=== PATIENT | female | born 1980 | race Caucasian/White ===

== ENCOUNTER 2016-10-27 19:13 | Emergency (ER) | payer OTHER | END 2016-10-27 20:02 | disposition home or self-care (01) | DX: S93.411A Sprain of calcaneofibular ligament of right ankle, initial encounter (principal); S93.601A Unspecified sprain of right foot, initial encounter; X50.1XXA Overexertion from prolonged static or awkward postures, initial encounter; Y93.01 Activity, walking, marching and hiking; Y92.009 Unspecified place in unspecified non-institutional (private) residence as the place of occurrence of the external cause; Y99.8 Other external cause status; R03.0 Elevated blood-pressure reading, without diagnosis of hypertension ==

== ENCOUNTER 2017-01-09 20:53 | Emergency (ER) | payer OTHER ==
[2017-01-09 21:40] LABS: HCG UR QUAL NEGATIVE
[2017-01-09 21:46] LABS: BILIRUBIN,URINE NEGATIVE (NEGATIVE); PH,URINE 5.5 PH (5.0-7.5); UA CHARGE (STRIP ONLY) YES; UR CULTURE IF IND NOT INDICATED
[2017-01-09] MEDS ORDERED: KETOROLAC 60 MG/2 ML VIAL ONE (21:54)
[2017-01-09] MEDS ORDERED: CYCLOBENZAPRINE 10 MG TABLET PO ONE (21:54)
--- NOTE | 2017-01-09 21:58 | ED Physician Documentation ---
PD HPI BACK PAIN - Stated complaint Stated Complaint: LOWER BACK PX - Chief complaint Chief Complaint: Back Pain - History obtained from History obtained from: Patient - History of Present Illness Timing - onset: Today Timing - details: Gradual onset, Still present Location: Lower, Left Quality: Spasm, Aching Associated symptoms: No: Fever, Weakness, Numbness, Incontinent of urine, Unable to urinate Worsened by: Movement, Palpation Similar symptoms before: Has not had sx before Recently seen: Not recently seen - Additional information Additional information: Patient is a 36 year old female with no significant past medical history who is presenting to the emergency department for left sided back pain. patient states that today she was breaking down an old brick fire pit, and then proceeded to move the bricks to a refuse pile. Patient states that after that she was mowing the grass when she developed left sided back pain and it eventually radiated down her left leg. Patient took 8 motrin pills with little relief. Patient denies any trauma Review of Systems Constitutional: denies: Fever, Chills Eyes: denies: Loss of vision, Decreased vision Nose: denies: Rhinorrhea / runny nose, Congestion Cardiac: denies: Chest pain / pressure Respiratory: denies: Cough GI: denies: Abdominal Pain, Nausea, Vomiting : denies: Dysuria, Unable to Void, Incontinent Skin: denies: Rash, Lesions Musculoskeletal: reports: Back pain Neurologic: denies: Generalized weakness, Focal weakness, Numbness Immunocompromised: denies: Immunocompromised PD PAST MEDICAL HISTORY - Past Medical History Psych: Anxiety - Past Surgical History 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, 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 - Present Medications Home Medications: Ambulatory Orders Medication Instructions Recorded Confirmed Sertraline HCl [Zoloft] 150 mg PO DAILY 10/01/14 01/09/17 Cyclobenzaprine [Flexeril] 10 mg PO TID PRN #10 tablet 01/09/17 - Allergies Allergies/Adverse Reactions: Allergies Allergy/AdvReac Type Severity Reaction Status Date / Time No Known Drug Allergies Allergy Verified 01/09/17 21:02 - Social History Does the pt smoke?: No Smoking Status: Never smoker Does the pt drink ETOH?: No Does the pt have substance abuse?: No - Immunizations Immunizations are current?: Yes - POLST Patient has POLST: No PD ED PE NORMAL - Vitals Vital signs reviewed: Yes - General General: Alert and oriented X 3, Well developed/nourished - HEENT HEENT: Atraumatic, PERRL - Neck Neck: Supple, no meningeal sign, No bony TTP - Cardiac Cardiac: RRR, No murmur - Respiratory Respiratory: No respiratory distress, Clear bilaterally - Abdomen Abdomen: Soft, Non tender, Non distended - Derm Derm: Normal color, Warm and dry, No rash - Extremities Extremities: No deformity, No tenderness to palpate, No edema - Neuro Neuro: Alert and oriented X 3, No motor deficit, No sensory deficit - Psych Psych: Normal mood, Normal affect PD ED PE EXPANDED - General General: Alert, In Pain - Back Back: Soft tissue tenderness (tenderness to palpation and hypertonicity of left paraspinal muscles in lower thoracic, upper lumbar region) Results - Vitals Vitals: Vital Signs - 24 hr 01/09/17 01/09/17 21:03 22:04 Temperature 36.7 C Heart Rate 94 90 Respiratory 18 14 Rate Blood Pressure 139/79 H 137/74 H O2 Saturation 98 100 Oxygen O2 Source Room air - Labs Labs: Laboratory Tests 01/09/17 01/09/17 21:25 21:25 Urine Color YELLOW Urine Clarity CLEAR Urine pH 5.5 Ur Specific [place] 1.010 1.010 Urine Protein NEGATIVE Urine Glucose (UA) NEGATIVE Urine Ketones NEGATIVE Urine Occult Blood NEGATIVE Urine Nitrite NEGATIVE Urine Bilirubin NEGATIVE Urine Urobilinogen 0.2 (NORMAL) Ur Leukocyte Esterase NEGATIVE Ur Microscopic Review NOT INDICATED Urine Culture Comments NOT INDICATED Urine HCG, Qual NEGATIVE PD MEDICAL DECISION MAKING - ED course Complexity details: reviewed old records, re-evaluated patient, considered differential, d/w patient ED course: Patient was seen and examined at bedside. Urine was collected and sent. When the urinalysis results returned patient was treated with a tylenol, 1gm and given a flexeril to go home with. Patient's pain was non traumatic and x-ray was not indicated at this time. patient had no neurological deficits. Patient required no further inpatient work up and was stable for discharge with outpatient follow up. Departure - Departure Disposition: 01 Home, Self Care Clinical Impression: Muscle spasm of back Condition: Good Instructions: ED Spasm Back No Trauma Follow-Up: primary,care provider [Other] - Within 3 Days (re-evaluate for back pain ) Prescriptions: Cyclobenzaprine [Flexeril] 10 mg PO TID PRN #10 tablet PRN Reason: Spasms Comments: Your symptoms today are likely being caused by a muscle spasm. You should take ibuprofen (600mg) or tylenol (1000mg) as needed for pain. You can take flexeril for spasm but you cannot take it with other sedatives including alcohol and you cannot drive, or work while taking it. You should apply ice packs or heat packs as needed. You should try to stay up and active as much as possible, and perform stretching exercises. You should follow up with your pmd if your symptoms persist. You may return to the emergency department at any time for new, worsening or uncontrollable symptoms. Forms: Activity restrictions Discharge Date/Time: 01/09/17 22:16
[2017-01-09] MEDS: CYCLOBENZAPRINE 10 MG TABLET PO STA (22:00)
[2017-01-09] MEDS ORDERED: ACETAMINOPHEN 500 MG TABLET PO ONE (22:01)
[2017-01-09] MEDS: ACETAMINOPHEN 500 MG TABLET PO STA (22:02)
[2017-01-09 22:06] VITALS: BP 137/74
[2017-01-09] MEDS: KETOROLAC 60 MG/2 ML VIAL IM STA (22:14)
== END 2017-01-09 22:16 | disposition home or self-care (01) ==
LOC: ED 20:53
DX: M62.830 Muscle spasm of back (principal)
CPT/HCPCS: 81001; 81003; 81025; 87086; 99283

== ENCOUNTER 2017-03-02 18:29 | Emergency (ER) | payer OTHER ==
[2017-03-02 18:51] LABS: BILIRUBIN,URINE NEGATIVE (NEGATIVE); UA w/ MICROSCOPIC CHARGE YES
[2017-03-02 18:53] LABS: HCG UR QUAL NEGATIVE
[2017-03-02 19:00] LABS: UR CULTURE IF IND NOT INDICATED; WBC,URINE 0-3 /HPF (0-5)
[2017-03-02] MEDS ORDERED: LORazepam 2 MG/ML SYRINGE IVP STA (19:03)
[2017-03-02] MEDS ORDERED: ONDANSETRON 4 MG/2 ML VIAL IVP STA (19:03)
--- NOTE | 2017-03-02 19:12 | ED Physician Documentation ---
History of Present Illness - Stated complaint Stated Complaint: ABD PX - Chief complaint Chief Complaint: Abd Pain - History obtained from History obtained from: Patient - Additonal information Additional information: Patient is a 36-year-old female with a history of anxiety and depression. She was on sertraline but ran out of this medication about 6 days ago. Recently she has not been sleepy. She feels shaky, irritated and her skin is been crawling. She has a burning sensation all over her body and earlier today had pressure in her abdomen with an episode of nausea and vomiting. She denies a fever chills. There is no chest pain pressure or dyspnea. She has not had any diarrhea or lower urinary symptoms. She does not want to hurt herself or anybody else. She recently changed insurance and ran out of her medications. She has been on this medication for a long time at 100 mg twice a day and it has helped her significantly. Other than this problem she really has no other medical issues or surgical problems. Review of systems: For pertinent positive and negatives in the review of systems please see history of present illness. Otherwise all other systems have been reviewed and are negative. Dragon disclaimer: Parts of this medical record were created using voice recognition technology. Because of the inherent limitations of this system occasional same sounding word substitutions do occur and persist despite proofreading. Please read the document for context. Review of Systems Ten Systems: 10 systems reviewed and negative Constitutional: denies: Fever, Chills, Myalgias Eyes: denies: Loss of vision Ears: denies: Loss of hearing Nose: denies: Congestion Throat: denies: Dental pain / toothache Cardiac: denies: Chest pain / pressure, Pedal edema, Calf pain Respiratory: denies: Dyspnea, Cough GI: reports: Nausea, Vomiting. 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 - Present Medications Home Medications: Ambulatory Orders Medication Instructions Recorded Confirmed Sertraline HCl [Zoloft] 150 mg PO DAILY 10/01/14 03/02/17 Lorazepam [Ativan] 1 mg PO BID PRN #6 tablet 03/02/17 Sertraline [Zoloft] 100 mg PO BID #30 tablet 03/02/17 - Allergies Allergies/Adverse Reactions: Allergies Allergy/AdvReac Type Severity Reaction Status Date / Time No Known Drug Allergies Allergy Verified 01/09/17 21:02 - Social History Does the pt smoke?: No Smoking Status: Never smoker Does the pt drink ETOH?: No Does the pt have substance abuse?: No - Immunizations Immunizations are current?: Yes - POLST Patient has POLST: No PD ED PE NORMAL - General General: Other (Tearful, anxious, slightly heavy young woman in no apparent distress) - HEENT HEENT: Atraumatic, PERRL, EOMI, Pharynx benign - Neck Neck: No JVD, No bruit - Cardiac Cardiac: RRR, No murmur, No gallop, No rub - Respiratory Respiratory: No respiratory distress, Clear bilaterally - Abdomen Abdomen: Normal bowel sounds, Non tender, Non distended - Back Back: No CVA TTP - Derm Derm: Normal color, Warm and dry, No rash, Other - Extremities Extremities: No deformity, No tenderness to palpate - Neuro Neuro: Alert and oriented X 3, No motor deficit, No sensory deficit - Psych Psych: Other (Anxious and tearful appearing., Thought processes linear, speech is not pressured, no delusions or hallucinations) Results - Vitals Vitals: Vital Signs - 24 hr 03/02/17 03/02/17 18:31 20:21 Temperature 36.1 C L Heart Rate 78 67 Respiratory 18 18 Rate Blood Pressure 145/100 H 131/63 H O2 Saturation 98 99 Oxygen O2 Source Room air - Labs Labs: Laboratory Tests 03/02/17 03/02/17 03/02/17 18:40 19:32 19:32 WBC 4.6 L RBC 4.78 Hgb 13.7 Hct 40.7 MCV 85.0 MCH 28.6 MCHC 33.6 RDW 13.3 Plt Count 204 MPV 7.3 L Neut # 2.5 Lymph # 1.6 [place] # 0.5 Eos # 0.1 Baso # 0.0 Absolute Nucleated RBC 0.00 Nucleated RBCs 0.1 Sodium 137 Potassium 3.6 Chloride 101 Carbon Dioxide 28 Anion Gap 8.0 BUN 23 H Creatinine 0.9 Estimated GFR (MDRD) 72 L Glucose 97 Calcium 9.0 Total Bilirubin 0.5 AST 21 ALT 28 Alkaline Phosphatase 69 Total Protein 7.0 Albumin 4.5 Globulin 2.5 Albumin/Globulin Ratio 1.8 Lipase 24 Urine Color YELLOW Urine Clarity CLOUDY Urine pH 6.0 Ur Specific [place] >=1.030 H Urine Protein NEGATIVE Urine Glucose (UA) NEGATIVE Urine Ketones NEGATIVE Urine Occult Blood NEGATIVE Urine Nitrite NEGATIVE Urine Bilirubin NEGATIVE Urine Urobilinogen 0.2 (NORMAL) Ur Leukocyte Esterase NEGATIVE Urine RBC 0-5 Urine WBC 0-3 Ur Squamous Epith Cells MANY Squamous H Urine Crystals 6-10 Calcium Oxalate Urine Bacteria Few Urine Starch PRESENT Ur Microscopic Review INDICATED Urine Culture Comments NOT INDICATED Urine HCG, Qual NEGATIVE Acetaminophen 03/02/17 03/02/17 19:32 19:49 WBC RBC Hgb Hct MCV MCH MCHC RDW Plt Count MPV Neut # Lymph # [place] # Eos # Baso # Absolute Nucleated RBC Nucleated RBCs Sodium Potassium Chloride Carbon Dioxide Anion Gap BUN Creatinine Estimated GFR (MDRD) Glucose Calcium Total Bilirubin AST ALT Alkaline Phosphatase Total Protein Albumin Globulin Albumin/Globulin Ratio Lipase Urine Color YELLOW Urine Clarity CLEAR Urine pH 6.0 Ur Specific [place] 1.025 Urine Protein NEGATIVE Urine Glucose (UA) NEGATIVE Urine Ketones NEGATIVE Urine Occult Blood NEGATIVE Urine Nitrite NEGATIVE Urine Bilirubin NEGATIVE Urine Urobilinogen 0.2 (NORMAL) Ur Leukocyte Esterase NEGATIVE Urine RBC Urine WBC Ur Squamous Epith Cells Urine Crystals Urine Bacteria Urine Starch Ur Microscopic Review NOT INDICATED Urine Culture Comments NOT INDICATED Urine HCG, Qual Acetaminophen < 10 L PD MEDICAL DECISION MAKING - ED course Complexity details: reviewed results, re-evaluated patient, considered differential, d/w patient ED course: Patient is a pleasant but very anxious young female who presents with signs and symptoms consistent with an anxiety and panic attack. There may also be a component of SSRI withdrawal.She was on Zoloft but discontinued this medication about 6 days ago and consequently has felt very stressed and panicky. Her constellation of symptoms did not seem to make sense from medical standpoint however we were careful and check things early. An EKG was done his EKG demonstrates normal sinus rhythm at 77 bpm the LA QRS and QT intervals are normal there is no ST elevation depression or T-wave inversion. Blood work on this patient including urinalysis is normal. She is given a very small dose of Ativan here and started back on her Zoloft. The patient is attempting to get into see a new doctor I will write her for a bridge prescription for her Zoloft. Disposition: To home Clinical impression: 1. Acute panic attack 2. Suspect mild SSRI withdrawal symptoms Departure - Departure Disposition: Home, Self Care Clinical Impression: Stress and adjustment reaction Condition: Good Instructions: ED Stress React Prescriptions: Lorazepam [Ativan] 1 mg PO BID PRN #6 tablet PRN Reason: Anxiety Sertraline [Zoloft] 100 mg PO BID #30 tablet
[2017-03-02] MEDS ORDERED: SERTRALINE 50 MG TABLET ONE (19:20)
[2017-03-02] MEDS ORDERED: ONDANSETRON 4 MG/2 ML VIAL ONE (19:37)
[2017-03-02 19:42] LABS: BASOPHILS % (AUTO) 0.4 %; EOSINOPHILS # (AUTO) 0.1 10^3/uL (0.0-0.7); EOSINOPHILS % (AUTO) 1.8 %; HCT - HEMATOCRIT 40.7 % (37.0-47.0); HGB - HEMOGLOBIN 13.7 g/dL (12.0-16.0); LYMPHOCYTES # (AUTO) 1.6 10^3/uL (1.5-3.5); LYMPHOCYTES % (AUTO) 34.7 %; MEAN CORPUSCULAR HEMOGLOBIN 28.6 pg (27.0-31.0); MEAN CORPUSCULAR HGB CONC 33.6 g/dL (32.0-36.0); MEAN PLATELET VOLUME 7.3 fL (7.9-10.8); MONOCYTES # (AUTO) 0.5 10^3/uL (0.0-1.0); MONOCYTES % (AUTO) 9.9 %; NEUTROPHILS # (AUTO) 2.5 10^3/uL (1.5-6.6); NEUTROPHILS % (AUTO) 53.2 %; NUCLEATED RED BLOOD CELLS AUTO 0.1 /100WBC; RED BLOOD COUNT 4.78 10^6/uL (4.20-5.40); RED CELL DISTRIBUTION WIDTH 13.3 % (12.0-15.0); UNCORRECTED WHITE BLOOD COUNT 4.6 x10^3/uL; WHITE BLOOD COUNT 4.6 x10^3/uL (4.8-10.8)
[2017-03-02 19:55] LABS: ALBUMIN/GLOBULIN RATIO 1.8 (1.0-2.2); BILIRUBIN,TOTAL 0.5 mg/dL (0.2-1.0); CREATININE 0.9 mg/dL (0.4-1.0); POTASSIUM 3.6 mmol/L (3.5-5.0)
[2017-03-02 19:58] LABS: BILIRUBIN,URINE NEGATIVE (NEGATIVE)
[2017-03-02 19:59] LABS: UA CHARGE (STRIP ONLY) YES; UR CULTURE IF IND NOT INDICATED
[2017-03-02] MEDS ORDERED: ACETAMINOPHEN 325 MG TABLET PO ONE (20:31)
[2017-03-02] MEDS ORDERED: ACETAMINOPHEN 325 MG TABLET PO STA (20:35)
[2017-03-02 22:12] VITALS: BP 147/89
[2017-03-03] MEDS ORDERED: SERTRALINE 50 MG TABLET PO SCH (09:00)
== END 2017-03-02 22:09 | disposition home or self-care (01) ==
LOC: ED 18:29
DX: F41.0 Panic disorder [episodic paroxysmal anxiety] (principal); F43.20 Adjustment disorder, unspecified
CPT/HCPCS: 36415; 80053; 80307; 81001; 81003; 81025; 83690; 85025; 93005; 96374; 99283; 99284; A9270; 87086

== ENCOUNTER 2017-06-10 15:03 | Emergency (ER) | payer OTHER ==
[2017-06-10 17:08] LABS: UA w/ MICROSCOPIC CHARGE YES
[2017-06-10 17:10] LABS: HCG UR QUAL NEGATIVE
[2017-06-10 17:16] LABS: WBC,URINE >25 /HPF (0-5)
[2017-06-10 17:48] LABS: UR CULTURE IF IND INDICATED
[2017-06-10] MEDS ORDERED: NITROFURANTOIN MACRO 100 MG CAPSULE PO STA (18:10)
[2017-06-10] MEDS ORDERED: PHENAZOPYRIDINE 100 MG TABLET PO STA (18:10)
[2017-06-10] MEDS ORDERED: ONDANSETRON ODT 4 MG TABLET TL STA (18:10)
--- NOTE | 2017-06-10 18:12 | ED Physician Documentation ---
PD HPI FEMALE - Stated complaint Stated Complaint: FEMALE - Chief complaint Chief Complaint: General - History obtained from History obtained from: Patient - History of Present Illness Timing - duration: Days (3) Timing - details: Still present Associated symptoms: Abdominal pain, Dysuria. No: Fever, Back pain - Additional information Additional information: The patient is a 37-year-old female who presents with dysuria of 3 days duration. She has had associated suprapubic abdominal discomfort, nausea and chills. She denies fever or back pain. Her last menstrual period was 3-1/2 weeks ago. The last time she had a urinary tract infection was several months ago. Review of Systems Constitutional: reports: Chills. denies: Fever Cardiac: denies: Chest pain / pressure Respiratory: denies: Dyspnea, Cough GI: reports: Abdominal Pain (suprapubic discomfort), Nausea. 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 - Present Medications Home Medications: Ambulatory Orders Medication Instructions Recorded Confirmed Sertraline [Zoloft] 100 mg PO BID #30 tablet 03/02/17 Nitrofurantoin [Macrobid] 100 mg PO BID #10 capsule 06/10/17 Phenazopyridine HCl [Pyridium] 200 mg PO TID PRN #10 tablet 06/10/17 Promethazine [Phenergan] 25 - 50 mg PO Q6H PRN #10 tab 06/10/17 - Allergies Allergies/Adverse Reactions: Allergies Allergy/AdvReac Type Severity Reaction Status Date / Time No Known Drug Allergies Allergy Verified 01/09/17 21:02 - Social History Does the pt smoke?: No Smoking Status: Never smoker Does the pt drink ETOH?: No Does the pt have substance abuse?: No - Immunizations Immunizations are current?: Yes - POLST Patient has POLST: No PD ED PE NORMAL - Vitals Vital signs reviewed: Yes (normal) - General General: Alert and oriented X 3, Well developed/nourished - HEENT HEENT: Atraumatic - Cardiac Cardiac: RRR - Respiratory Respiratory: No respiratory distress, Clear bilaterally - Abdomen Abdomen: Soft, Other (Mild suprapubic tenderness to palpation, without rebound tenderness or guarding.) - Back Back: No CVA TTP - Derm Derm: No rash - Extremities Extremities: No edema, No calf tenderness / cord - Neuro Neuro: Alert and oriented X 3, No motor deficit, Normal speech Results - Vitals Vitals: Vital Signs - 24 hr 06/10/17 18:22 Heart Rate 67 Respiratory 16 Rate Blood Pressure 144/64 H O2 Saturation 99 Oxygen O2 Source Room air - Labs Labs: Microbiology 06/10/17 16:50 Urine Culture - Preliminary Urine,Clean Catch CULTURE IN PROGRESS. RESULTS TO FOLLOW. 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 Her presentation does not suggest sepsis or pyelonephritis. Treatment in the emergency department included administration of Zofran 4 mg orally, Macrobid 100 mg orally, and Pyridium 200 mg orally. She is being discharged with prescriptions for Macrobid, Pyridium, and Phenergan. I discussed with her the expected course of illness, symptomatic treatment and outpatient follow-up, as well as potentially worrisome signs or symptoms that should prompt reevaluation in the emergency department Departure - Departure Disposition: 01 Home, Self Care Clinical Impression: Acute urinary tract infection Condition: Stable Instructions: ED UTI Cystitis Female Follow-Up: GABRIELLA Yoder [Provider Group] Prescriptions: Nitrofurantoin [Macrobid] 100 mg PO BID #10 capsule Phenazopyridine HCl [Pyridium] 200 mg PO TID PRN #10 tablet PRN Reason: pain with urination Promethazine [Phenergan] 25 - 50 mg PO Q6H PRN #10 tab PRN Reason: Nausea / Vomiting Comments: Drink plenty of fluids, including cranberry juice. Take Macrobid twice daily as prescribed. You can use Pyridium as needed for painful urination. You can use Phenergan as prescribed if needed for nausea. Follow up with your primary physician within one to 2 weeks. Call to schedule an appointment. Return to the emergency department if you develop increasing abdominal pain, persistent vomiting, fever with shaking chills, or otherwise worsening symptoms. Discharge Date/Time: 06/10/17 18:29
[2017-06-10 18:23] VITALS: BP 144/64
[2017-06-10] MEDS ORDERED: NITROFURANTOIN MACRO 100 MG CAPSULE PO ONE (18:23)
[2017-06-10] MEDS ORDERED: PHENAZOPYRIDINE 100 MG TABLET PO ONE (18:24)
[2017-06-10] MEDS ORDERED: ONDANSETRON ODT 4 MG TABLET ONE (18:24)
== END 2017-06-10 18:29 | disposition home or self-care (01) ==
LOC: ED 15:03
DX: N39.0 Urinary tract infection, site not specified (principal)
CPT/HCPCS: 81001; 81025; 87086; 99283; A9270; Q0162; 81003